=== PATIENT | female | born 1990 ===

== ENCOUNTER 2019-08-14 17:04 | Emergency (ER) | payer OTHER ==
[~2019-08-14] VITALS: Ht 162.6 cm; Wt 72.6 kg
[2019-08-14] MEDS ORDERED: LOESTRIN FE 1-1 EACH PO (20:41)
== END 2019-08-14 20:49 | disposition home or self-care (01) ==
LOC: ER 17:04
DX: R42 Dizziness and giddiness (principal); N92.0 Excessive and frequent menstruation with regular cycle